=== PATIENT | female | born 1955 | race Caucasian/White ===

== ENCOUNTER 2024-03-25 14:31 | Emergency (ER) | payer OTHER ==
[2024-03-25 15:37] LABS: Absolute Basophils 0.1 K/uL (0-0.5); Absolute Eosinophils 0.2 K/uL (0-0.5); Absolute Lymphocytes (CBC) 1.4 K/uL (0.7-4.9); Absolute Monocytes 0.5 K/uL (0.1-1.3); Absolute Neutrophil 4.9 K/uL (1.8-8.0); Eosinophils % 2.6 % (0-4.4); Hematocrit 41.1 % (36.0-45.0); Hemoglobin 13.8 g/dL (12.0-15.0); Lymphocytes % 20.5 % (15.3-44.8); MCH 28.6 pg (27.0-35.0); MCHC 33.5 g/dL (32.0-36.0); MCV 85.4 fL (80-100); MPV 7.4 fL (7.6-11.3); Monocytes % 6.5 % (3.3-12.3); Neutrophils % 69.4 % (41.7-73.7); Platelets 289 thou/uL (152-406); RBC Red Blood Cell Count 4.82 M/uL (3.86-4.86); Red Cell Distribution Width 13.4 % (12.1-15.2)
--- NOTE | 2024-03-25 15:40 | RAD REPORT ---
EXAM DESCRIPTION: RAD - Chest Single View - 03/25/2024 3:29 pm CLINICAL HISTORY: DYSPNEA COMPARISON: Chest Pa And Lat (2 Views) dated 06/14/2023 FINDINGS: Lines: None. Lungs: No evidence of edema or pneumonia. Pleural: No significant pleural effusions or pneumothorax. Cardiac: The heart size is within normal limits. Mediastinum: Within normal limits. Bones: No acute fractures. Other: None IMPRESSION: No acute cardiopulmonary disease.
[2024-03-25 15:44] LABS: PT Prothrombin Time 11.6 SECONDS (9.5-12.5); Protime INR 1.06
[2024-03-25 15:56] LABS: SARS-CoV-2 Antigen CONTROL BLUE LINE VIS/BG OK; SARS-CoV-2 Antigen Rapid Res Negative (Negative)
[2024-03-25 16:01] LABS: ALT/SGPT 36 U/L (13-56); AST/SGOT 22 U/L (15-37); Albumin 3.9 g/dL (3.4-5.0); Albumin/Globulin Ratio 1.3 (1.1-1.8); Alkaline Phosphatase 113 U/L (45-117); Anion Gap 8.6 mEq/L (5.0-15.0); BUN Blood Urea Nitrogen 17 mg/dL (7-18); Bicarbonate 25 mEq/L (21-32); Bilirubin Total 0.4 mg/dL (0.2-1.0); Globulin 3.1 g/dL (2.3-3.5); Glomerular Filtration Rate 41 ml/min (=/>90); Glucose Level 101 mg/dL (74-106); Magnesium 2.3 mg/dL (1.6-2.4); NT PRO-BNP 131 pg/mL (<125); Potassium 3.6 mEq/L (3.5-5.1); Sodium Level 140 mEq/L (136-145); Troponin High Sensitivity 4.6 pg/mL (<58.9)
[2024-03-25 16:03] LABS: Bilirubin Direct < 0.2 mg/dL (0-0.2); Bilirubin Indirect, Calculated 0.2 mg/dL (0.2-0.8)
--- NOTE | 2024-03-25 16:22 | EDPHYS ---
Physician Documentation [facility] Name: Jennifer Lombardi Age: 68 yrs Sex: Female : 1955 Arrival Date: 03/25/2024 Time: 14:31 Bed 20 Private MD: ED Physician Thad Rosales HPI: 03/25 15:14 This 68 yrs old Female presents to ER via Ambulatory with complaints of Shortness Of sp3 Breath. 15:14 68-year-old female with a history of hypertension presents to the ED with chief sp3 complaint sudden onset of shortness of breath which is now resolved. She was watching TV when she had an episode of having a hard time "catching her breath" unassociated any other symptoms. It self resolved after a few minutes. She now presents to the ED "to get checked out and make sure breathing is okay". Before during and currently she has denied chest pain, headache, fever, cough, injury, prolonged immobilization, travel history, known sick contacts, abdominal pain, nausea, vomiting, diarrhea, syncope, near syncope, other neurological deficit, change in urine output, rash, or any other signs or symptoms on ROS at this time.. Historical: - Allergies: 14:53 PENICILLINS; as6 - PMHx: 14:53 Hypertensive disorder; as6 - PSHx: 14:53 kidney; Total abdominal hysterectomy; as6 - Immunization history:: Adult Immunizations up to date. - Infectious Disease History:: Denies. - Social history:: Smoking status: Patient denies any tobacco usage or history of. ROS: 15:15 Constitutional: Negative for fever, chills, and weight loss, Eyes: Negative for injury, sp3 pain, redness, and discharge, ENT: Negative for injury, pain, and discharge, Neck: Negative for injury, pain, and swelling, Cardiovascular: Negative for chest pain, palpitations, and edema, Abdomen/GI: Negative for abdominal pain, nausea, vomiting, diarrhea, and constipation, Back: Negative for injury and pain, MS/Extremity: Negative for injury and deformity, Skin: Negative for injury, rash, and discoloration, Neuro: Negative for headache, weakness, numbness, tingling, and seizure, Psych: Negative for depression, anxiety, suicide ideation, homicidal ideation, and hallucinations, Allergy/Immunology: Negative for hives, rash, and allergies, Endocrine: Negative for neck swelling, polydipsia, polyuria, polyphagia, and marked weight changes, Hematologic/Lymphatic: Negative for swollen nodes, abnormal bleeding, and unusual bruising, 15:15 All other systems are negative, Exam: 15:16 Constitutional: This is a well developed, well nourished patient who is awake, alert, sp3 and in no acute distress. Head/Face: Normocephalic, atraumatic. Eyes: Pupils equal round and reactive to light, extra-ocular motions intact. Lids and lashes normal. Conjunctiva and sclera are non-icteric and not injected. Cornea within normal limits. Periorbital areas with no swelling, redness, or edema. ENT: Nares patent. No nasal discharge, no septal abnormalities noted. External auditory canals are clear. Oropharynx with no redness, swelling, or masses, exudates, or evidence of obstruction, uvula midline. Mucous membranes moist. Neck: Trachea midline, no thyromegaly or masses palpated, and no cervical lymphadenopathy. Supple, full range of motion without nuchal rigidity, or vertebral point tenderness. No Meningismus. Chest/axilla: Normal chest wall appearance and motion. Nontender with no deformity. No lesions are appreciated. Cardiovascular: Regular rate and rhythm with a normal S1 and S2. No gallops, murmurs, or rubs. Normal PMI, no JVD. No pulse deficits. Respiratory: Lungs have equal breath sounds bilaterally, clear to auscultation and percussion. No rales, rhonchi or wheezes noted. No increased work of breathing, no retractions or nasal flaring. Abdomen/GI: Soft, non-tender, with normal bowel sounds. No distension or tympany. No guarding or rebound. No evidence of tenderness throughout. Back: No spinal tenderness. No costovertebral tenderness. Full range of motion. Skin: Warm, dry with normal turgor. Normal color with no rashes, no lesions, and no evidence of cellulitis. MS/ Extremity: Pulses equal, no cyanosis. Neurovascular intact. Full, normal range of motion. Neuro: Awake and alert, GCS 15, oriented to person, place, time, and situation. Cranial nerves II-XII grossly intact. Motor strength 5/5 in all extremities. Sensory grossly intact. Cerebellar exam normal. Normal gait. Psych: Awake, alert, with orientation to person, place and time. Behavior, mood, and affect are within normal limits. 16:20 ECG was reviewed by the Attending Physician. EKG demonstrates normal sinus rhythm at 73 sp3 bpm with normal intervals, normal QRS, normal axis, nonspecific diffuse ST/changes without evidence of acute ischemia. Vital Signs: 14:51 BP 155 / 84; Pulse 79; Resp 18; Temp 97.3; Pulse Ox 98% ; Weight 82.55 kg; Height 5 ft. as6 3 in. ; Pain 0/10; 15:14 BP 165 / 87; Pulse 75; Resp 16; Pulse Ox 97% on R/A; cm10 16:00 BP 156 / 89; Pulse 75; Resp 18; Pulse Ox 99% on R/A; cm10 14:51 Body Mass Index 32.24 (82.55 kg, 160.02 cm) as6 14:51 Pain Scale: Adult as6 MDM: 15:04 Patient medically screened. sp3 15:16 Data reviewed: vital signs, nurses notes, lab test result(s), EKG, radiologic studies. sp3 ED course: 68-year-old female with history of hypertension now with a resolved single episode of dyspnea without any other associated symptoms. Differential diagnosis is broad and includes anxiety episode, cough/allergies, and to a lesser degree acute coronary syndrome, CHF, flash pulmonary edema, pneumonia, bronchitis, DVT/PE spectrum although these latter differentials are mainly clinically ruled out. We will obtain chest x-ray, EKG, general laboratory values including troponin and BNP as well as viral swabs to further assess. Patient with normal exam, normal vital signs and no signs of extremis whatsoever. Disposition probable discharge if workup is negative and patient continues her current clinical state.. 16:20 ED course: Full workup negative. Patient in no acute distress and asymptomatic sp3 currently. Patient wants to be discharged and we will safely let her go home with PCP follow-up. She states she will return for any worsening or further symptoms.. 03/25 15:04 Order name: Basic Metabolic Panel; Complete Time: 16:19 sp3 03/25 15:04 Order name: CBC with Diff; Complete Time: 16:19 sp3 03/25 15:04 Order name: LFT's; Complete Time: 16:19 sp3 03/25 15:04 Order name: Magnesium; Complete Time: 16:19 sp3 03/25 15:04 Order name: NT PRO-BNP; Complete Time: 16:19 sp3 03/25 15:04 Order name: PT-INR; Complete Time: 16:19 sp3 03/25 15:04 Order name: Troponin HS; Complete Time: 16:19 sp3 03/25 15:04 Order name: Flu; Complete Time: 16:19 sp3 03/25 15:04 Order name: SARS RAPID; Complete Time: 16:19 sp3 03/25 15:04 Order name: XRAY Chest (1 view); Complete Time: 16:19 sp3 03/25 15:04 Order name: EKG; Complete Time: 15:05 sp3 03/25 15:04 Order name: Cardiac monitoring; Complete Time: 15:44 sp3 03/25 15:04 Order name: EKG - Nurse/Tech; Complete Time: 15:44 sp3 03/25 15:04 Order name: IV Saline Lock; Complete Time: 15:29 sp3 03/25 15:04 Order name: Labs collected and sent; Complete Time: 15:29 sp3 03/25 15:04 Order name: O2 Per Protocol; Complete Time: 15:29 sp3 03/25 15:04 Order name: O2 Sat Monitoring; Complete Time: 15:29 sp3 Administered Medications: No medications were administered Disposition Summary: 03/25/24 16:21 Discharge Ordered Notes: Location: Home sp3 Condition: Stable sp3 Diagnosis - Dyspnea sp3 Followup: sp3 - With: Private Physician - When: Upon discharge from the Emergency Department - Reason: Continuance of care Discharge Instructions: - Discharge Summary Sheet sp3 - Shortness of Breath, Adult sp3 Forms: - Medication Reconciliation Form sp3 - Antibiotic Education sp3 - Prescription Opioid Use sp3 - Patient Portal Instructions sp3 - Leadership Thank You Letter sp3 Signatures: Dispatcher [employer] Thad Irwin MD MD sp3 Sriram Maxwell, NANCY RN as6
--- NOTE | 2024-03-25 16:22 | ER ---
Nurse's Notes [facility] Name: Jennifer Lombardi Age: 68 yrs Sex: Female : 1955 Arrival Date: 03/25/2024 Time: 14:31 Bed 20 Private MD: Diagnosis: Dyspnea Presentation: 03/25 14:51 Chief complaint: Patient states: "I was just sitting there and then got really short of as6 breath" pt now c/o SOB off and no. Coronavirus screen: At this time, the client does not indicate any symptoms associated with coronavirus-19. Ebola Screen: No symptoms or risks identified at this time. Initial Sepsis Screen: Does the patient meet any 2 criteria? No. Patient's initial sepsis screen is negative. Does the patient have a suspected source of infection? No. Patient's initial sepsis screen is negative. Risk Assessment: Do you want to hurt yourself or someone else? Patient reports no desire to harm self or others. Onset of symptoms was March 25, 2024. 14:51 Method Of Arrival: Ambulatory as6 14:51 Acuity: PATTI 2 as6 Triage Assessment: 15:32 General: Appears in no apparent distress. comfortable, Behavior is calm, cooperative. cm10 Pain: Denies pain. Neuro: No deficits noted. Level of Consciousness is awake, alert, obeys commands, Oriented to person, place, time, situation, Appropriate for age. Neuro: Reports dizziness. Cardiovascular: No deficits noted. Heart tones S1 S2 present Patient's skin is warm and dry. Respiratory: Reports shortness of breath Breath sounds are clear bilaterally. Onset: The symptoms/episode began/occurred today, the patient reports symptoms have resolved. Derm: No deficits noted. Skin is healthy with good turgor, Skin is pink, warm \\T\\ dry. Musculoskeletal: No deficits noted. Range of motion: intact in all extremities. Historical: - Allergies: 14:53 PENICILLINS; as6 - PMHx: 14:53 Hypertensive disorder; as6 - PSHx: 14:53 kidney; Total abdominal hysterectomy; as6 - Immunization history:: Adult Immunizations up to date. - Infectious Disease History:: Denies. - Social history:: Smoking status: Patient denies any tobacco usage or history of. Screenin:33 [facility] ED Fall Risk Assessment (Adult) History of falling in the last 3 months, cm10 including since admission No falls in past 3 months (0 pts) Confusion or Disorientation No (0 pts) Intoxicated or Sedated No (0 pts) Impaired Gait No (0 pts) Mobility Assist Device Used No (0 pt) Altered Elimination No (0 pt) Score/Fall Risk Level 0 - 2 = Low Risk Oriented to surroundings, Maintained a safe environment, Hourly rounding (assess needs \\T\\ fall precautionary measures) done. Abuse screen: Denies threats or abuse. Denies injuries from another. Nutritional screening: No deficits noted. Tuberculosis screening: No symptoms or risk factors identified. Assessment: 15:54 Cardiovascular: Rhythm is regular. cm10 16:28 Reassessment: Patient appears in no apparent distress at this time. Patient and/or cm10 family updated on plan of care and expected duration. Pain level reassessed. Patient is alert, oriented x 3, equal unlabored respirations, skin warm/dry/pink. Patient states feeling better. Patient states symptoms have improved. 16:38 Respiratory: Airway is patent Respiratory effort is even, unlabored, Respiratory cm10 pattern is regular, symmetrical. Vital Signs: 14:51 BP 155 / 84; Pulse 79; Resp 18; Temp 97.3; Pulse Ox 98% ; Weight 82.55 kg; Height 5 ft. as6 3 in. ; Pain 0/10; 15:14 BP 165 / 87; Pulse 75; Resp 16; Pulse Ox 97% on R/A; cm10 16:00 BP 156 / 89; Pulse 75; Resp 18; Pulse Ox 99% on R/A; cm10 14:51 Body Mass Index 32.24 (82.55 kg, 160.02 cm) as6 14:51 Pain Scale: Adult as6 Vitals: 15:54 Cardiac Rhythm Assessment Regular Sinus rhythm. cm10 ED Course: 14:33 Patient arrived in ED. ts1 14:36 Thad Rosales MD is Attending Physician. sp3 14:53 Triage completed. as6 14:53 Arm band placed on. as6 15:07 Sylvia Cornell, NANCY is Primary Nurse. cm10 15:13 Missed attempt(s): 22 gauge in left antecubital area. Bleeding controlled, band aid sm8 applied, catheter tip intact. 15:29 SARS RAPID Sent. cm10 15:29 Flu Sent. cm10 15:29 Basic Metabolic Panel Sent. cm10 15:29 CBC with Diff Sent. cm10 15:29 LFT's Sent. cm10 15:29 Magnesium Sent. cm10 15:29 NT PRO-BNP Sent. cm10 15:29 PT-INR Sent. cm10 15:29 Troponin HS Sent. cm10 15:30 Initial lab(s) drawn, by me, sent to lab. Inserted saline lock: 20 gauge in right cm10 forearm, using aseptic technique. Blood collected. 15:31 XRAY Chest (1 view) In Process Unspecified. EDMS 15:33 Patient has correct armband on for positive identification. Bed in low position. Call cm10 light in reach. Side rails up X2. Provided Education on: ER process and procedures.. Client placed on continuous cardiac and pulse oximetry monitoring. NIBP monitoring applied. environmental monitoring technician on. 15:34 COVID swab sent to lab. Flu and/or RSV swab sent to lab. cm10 16:38 No provider procedures requiring assistance completed. IV discontinued, intact, cm10 bleeding controlled, No redness/swelling at site. Pressure dressing applied. Administered Medications: No medications were administered Medication: 15:33 VIS not applicable for this client. cm10 Outcome: 16:21 Discharge ordered by . sp3 16:38 Discharged to home ambulatory, cm10 16:38 Condition: good 16:38 Discharge instructions given to patient, Instructed on discharge instructions, follow up and referral plans. Demonstrated understanding of instructions, follow-up care, 16:39 Patient left the ED. cm10 Signatures: Dispatcher [employer] EDND Thad Rosales MD MD sp3 Sriram Maxwell, RN RN as6 [place] PAS PAS ts1 Sylvia Cornell, RN RN cm10 Shayy Berrios 8
[2024-03-25 17:02] VITALS: TEMP 97.3
[2024-03-25 17:25] VITALS: BP 156/89; O2SAT 99
--- NOTE | 2024-03-26 12:03 | EKG ---
Test Date: 2024-03-25 Test Time: 15:36:40 [place]: EDY MEASUREMENT RESULTS: Intervals: Rate: 73 [place]: 154 QRSD: 78 QT: 410 QTc: 451 [place]: P: 31 [place]: 154 QRS: 59 T: 58 INTERPRETIVE STATEMENTS: Normal sinus rhythm Normal ECG No previous ECG available for comparison Electronically Signed On 03-26-24 12:02:58 CDT by Gee Hernandez
== END 2024-03-25 16:39 | disposition home or self-care (01) ==
LOC: ER 14:31
DX: R06.00 Dyspnea, unspecified (principal); Z11.52 Encounter for screening for COVID-19
CPT/HCPCS: 36415; 71045; 80048; 80076; 83735; 83880; 84484; 85025; 85610; 87804; 87811; 93005; 99284